=== PATIENT | male | born 1990 | race Two or more races ===

== ENCOUNTER 2020-02-28 15:39 | Emergency (ER) | payer SELFPAY ==
[~2020-02-28] VITALS: Ht 200.7 cm; Wt 131.5 kg
[2020-02-28 15:54] VITALS: BP 126/77
== END 2020-02-28 16:40 | disposition home or self-care (01) ==
LOC: ER 15:39
DX: G47.00 Insomnia, unspecified (principal); F90.9 Attention-deficit hyperactivity disorder, unspecified type; Z76.0 Encounter for issue of repeat prescription; E11.9 Type 2 diabetes mellitus without complications